=== PATIENT | female | born 1950 | race Caucasian/White ===

== ENCOUNTER 2020-03-18 12:58 | Observation (INO) | payer MEDICARE, SELFPAY ==
[2020-03-18] VITALS (25 sets, daily range): BP systolic 120–143; BP diastolic 66–100; PULSE 65–106; RESP 14–20; TEMP 36.1–36.7; O2SAT 95–99; BMI 38.9
--- NOTE | ~2020-03-18 | CT_ITS ---
EXAMINATION: CT brain wo con DATE: 03/18/2020 14:01 INDICATION: Fall. Struck back of head. Syncopal episodes. TECHNIQUE: Computed tomography (CT) of the head was performed without intravenous contrast. The mA wa s adjusted according to patient size. Iterative reconstruction technique was employed. Exam dose: 60 5.33 mGy-cm total exam DLP. COMPARISON: None FINDINGS: No intracranial mass lesion or hemorrhage, midline shift or mass effect. There are bilatera l carotid siphon internal carotid artery calcifications. No cerebrovascular accident is evident. No subdural or epidural hematoma. No orbital mass lesion is evident. There is right posterior parietal cephalohematoma and mild subcutaneous emphysema secondary to lacera tion. No fracture or bone destruction of the cranial vault. Included paranasal sinuses and mastoid air cells are normally developed and aerated. IMPRESSION: Right posterior parietal cephalohematoma and mild subcutaneous emphysema No skull fracture or acute intracranial finding Cerebral atherosclerosis Reviewed, dictated and finalized at [facility]. Reviewed, dictated and finalized at [facility]. IMPRESSION: Right posterior parietal cephalohematoma and mild subcutaneous emph ysema No skull fracture or acute intracranial finding Cerebral atherosclerosis
--- NOTE | ~2020-03-18 | XR_ITS ---
EXAMINATION: XR elbow RT min 3V EXAM DATE: 03/19/2020 17:25 INDICATION: Initial encounter following injury, with pain of the right elbow. Posterior tenderness. TECHNIQUE: Right elbow frontal, lateral with flexion, and oblique projections obtained and reviewed. There is no prior study for comparison. FINDINGS: Right elbow anterior humeral line intact. There are no acute fractures or dislocations identified. There is no subcutaneous gas. The soft tis rabia is unremarkable. There is an antecubital IV. IMPRESSION: No acute osseous findings. Reviewed, dictated and finalized at [facility]. IMPRESSION: No acute osseous findings.
--- NOTE | ~2020-03-18 | XR_ITS ---
EXAMINATION: XR chest 1V portable DATE: 03/18/2020 20:30 INDICATION: Increased BP. Possible superior vena cava syndrome. TECHNIQUE: frontal view of the chest was obtained. COMPARISON: None FINDINGS: Focal eventration along the left hemidiaphragm with a couple adjacent surgical clips. Mild linear ate lectasis/scarring in the left lower lung zone. No other airspace opacities, pulmonary edema, pleural effusion or pneumothorax. The cardiomediastinal silhouette is normal. Retained cardiac pacemaker/defi brillator lead with distal tip projecting over the apex of the right ventricle and with proximal and coiled without attached pacemaker projecting of the lateral left upper lung. Widening of the bilatera l coracoclavicular joints which could represent sequela of old trauma or prior distal clavicle resect ions. IMPRESSION: 1. Mild left basilar atelectasis. No acute cardiopulmonary disease. Reviewed, dictated and finalized at [facility].
--- NOTE | 2020-03-18 13:12 | ED.SYNCOPE ---
HPI - Syncope General Chief Complaint: Syncope Stated Complaint: SYNCOPE, FALL, HEAD LAC Time Seen by Provider: 03/18/20 13:03 History of Present Illness HPI narrative: 69 yo female with h/o htn, hypothyroid, depression, orthostatic syncope presents c/o syncope. She reports that she was just discharged from another hospital after being admitted for nearly one week for near syncope on standing. She says that every time she stands her head and neck swell and she becomes dizzy and her legs get weak. Today she stood up and passed out falling backward and striking her head on a door. She sustained a laceration to her scalp. She is on eliquis Related Data Home Medications Medication Instructions Recorded Confirmed apixaban [Eliquis] 5 mg PO BID 03/18/20 03/18/20 atorvastatin 10 mg PO DAILY 03/18/20 03/18/20 famotidine 20 mg PO BID 03/18/20 03/18/20 levothyroxine 175 mcg PO DAILY 03/18/20 03/18/20 lisinopril 5 mg PO DAILY 03/18/20 03/18/20 metoprolol tartrate 25 mg PO DAILY 03/18/20 03/18/20 nitrofurantoin macrocrystal 100 mg PO HS 03/18/20 03/18/20 omeprazole magnesium [Prilosec OTC] 20 mg PO DAILY 03/18/20 03/18/20 tramadol 50 mg PO TID 03/18/20 03/18/20 venlafaxine 75 mg PO TID 03/18/20 03/18/20 zolpidem 5 mg PO HS PRN 03/18/20 03/18/20 Allergies Allergy/AdvReac Type Severity Reaction Status Date / Time azithromycin Allergy Unknown Verified 03/18/20 14:17 Review of Systems Review of Systems: All systems reviewed & are unremarkable except as noted in HPI and below Constitutional: Constitutional: Denies fever(s) Eyes: Eyes: Denies change in vision Cardiovascular: Cardiovascular: Denies chest pain Gastrointestinal: Gastrointestinal: Denies abdominal pain and Denies nausea Musculoskeletal: Musculoskeletal: Denies back pain Neurologic: Denies confusion and Reports syncope [facility] Past Medical History Medical History Arrhythmia Ascending aortic aneurysm DVT (deep venous thrombosis) GERD (gastroesophageal reflux disease) HTN (hypertension) with goal to be determined Hyperlipidemia Hypothyroidism Pseudomyxoma peritonei Syncope and collapse Surgical History Surgical History History of cardiac defibrillator placement Family History Family History (Updated 03/18/20 @ 17:31 by Rochelle Lucas RN) Father Skin cancer Mother Diabetes mellitus Social History Social History Smoking status: Never smoker Alcohol intake: former Substance use: never Gender identity (if verbalized by the patient): Female Spiritual care concerns: No Exam Const: General: healthy appearing, no acute distress and alert Orientation/consciousness: patient oriented x3 HENMT: Head: laceration (scalp) Neck: Neck: normal visual inspection and no lymphadenopathy Chest: Chest palpation & inspection: no tenderness Resp: Effort & Inspection: normal respiratory effort Auscultation: clear to auscultation bilaterally, no rales, no rhonchi and no wheezes Cardio: Jugular venous distension: no JVD Rate: regular rate Rhythm: regular rhythm Heart sounds: no murmurs GI: Inspection: non-distended GI Palp: Yes Soft to palpation and No Tenderness to palpation present (GI) Skin: General skin exam: normal color Neuro: General: patient oriented x3 and moves all extremities Speech: normal speech Extrem: General: no edema Psych: Appearance: well kempt Affect: normal affect Course Course Emergency Course: I was planning laceration repair. Patient went upstairs before I had the opportunity to complete this Vital Signs Vital signs: Vital Signs Temperature 36.7 C 03/18/20 13:07 Pulse Rate 76 03/18/20 13:07 Respiratory Rate 20 03/18/20 13:07 Blood Pressure 138/89 03/18/20 13:07 Pulse Oximetry 95 03/18/20 13:07 Temperature 36.1 C L 06/0
--- NOTE | 2020-03-18 13:13 | ECG_ITS ---
Measurements Intervals [place] Rate: 79 P: 53 MI: 160 QRS: 31 QRSD: 101 T: 98 QT: 384 QTc: 441 Interpretive Statements SINUS RHYTHM WITH SINUS ARRHYTHMIA BORDERLINE ST-T WAVE ABNORMALITY- ANTEROLAT/LAT LEADS BORDERLINE ECG Electronically Signed On 03-18-2020 13:57:02 CDT by Naveed Singh D.O.
[2020-03-18] MEDS: SODIUM CHLORIDE 0.9% IV 500 ML 999 ML IV CONT (13:28)
[2020-03-18 13:47] LABS: Basophils Percent Auto 0.5 % (0.2-1.2); Eosinophils Absolute Auto 0.1 K/mm3 (0-0.3); Eosinophils Percent Auto 1.1 % (0-4.4); Hematocrit 43.1 % (37.0-47.0); Hemoglobin 13.9 g/dL (12.0-15.0); Immature Granulocyte Absolute 0.03 K/mm3 (0.00-0.031); Immature Granulocyte Percent A 0.4 % (0-0.5); Lymphocytes Absolute Auto 2.29 K/mm3 (0.9-3.2); Lymphocytes Percent Auto 27.6 % (18.3-44.2); Mean Corpuscular HGB Conc 32.3 g/dl (32-36); Mean Corpuscular Hemoglobin 32.6 pg (26-34); Mean Corpuscular Volume 101.2 fl (80-100); Mean Platelet Volume 10.3 fl (7.4-10.4); Monocytes Absolute Auto 0.8 K/mm3 (0.1-0.6); Monocytes Percent Auto 10.1 % (2.6-8.5); Neutrophils Percent Auto 60.3 % (45.5-73.1); Platelet Count Result 311 k/mm3 (150-375); Red Blood Count 4.26 M/mm3 (4.2-5.4); Red Cell Distribution Width 14.6 % (11.5-14.5); White Blood Count 8.3 K/mm3 (4.5-10.0)
[2020-03-18 13:56] LABS: INR 1.1; Prothrombin Time 14.3 Seconds (11.1-14.7)
[2020-03-18 13:57] LABS: Partial Thromboplastin Time 27.2 SECONDS (22.3-36.8)
[2020-03-18 13:58] LABS: Alanine Aminotransferase 39 U/L (4-35); Albumin Level 4.8 g/dL (3.5-5.1); Alkaline Phosphatase 121 U/L (38-126); Aspartate Amino Transferase 49 U/L (14-36); Bilirubin,Total 0.6 mg/dL (0.2-1.3); Blood Urea Nitrogen 11 mg/dL (7-17); Calcium 9.1 mg/dL (8.4-10.2); Carbon Dioxide 25 mmol/L (22-30); Chloride 104 mmol/L (98-107); Estimated CRCL calculation 63 ml/min; Estimated Glomerular Filt Rate > 60; Glucose 142 mg/dL (65-105); Potassium 3.8 mmol/L (3.4-5.0); Sodium 139 mmol/L (137-145)
[2020-03-18 14:47] LABS: Add Urine Microscopic? YES; Appearance Urine Clear (Clear); Bilirubin Urine Negative (Negative); Blood Urine 1+ (Negative); Color Urine Yellow (Yellow); Glucose Urine UA Negative (Negative); Ketones Urine Negative (Negative); Leukocyte Esterase Ur Negative LEU/UL (Negative); Mucus Urine Rare /lpf; Nitrate Urine Negative (Negative); Protein Urine Negative (Negative); RBC Urine 0-2 /hpf (0-2); Squamous Epithelial Cell Urine Occasional /hpf (Few); Urobilinogen Urine Negative mg/dL (<2.0); WBC Urine 0-3 /hpf
--- NOTE | 2020-03-18 17:08 | PC.NURSE ---
This patient, Jossy Celis, was admitted to Medical Room 342-01. Patient/family oriented to hospital policies and general routines including ID bracelet, bed and alarms, visiting hours, pain management, procedures, bathroom and other care routines, personal items, smoking policy, room service/diet, and visiting hours. Valuables list has been completed. Information on how to activate the Rapid Response Team has been discussed. Patient/Family are encouraged to report perceived risks to care and to ask questions if they do not understand what they are told or what they should do.
[2020-03-18] MEDS: LACTATED RINGERS 1,000 ML 100 ML IV CONT (18:24)
--- NOTE | 2020-03-18 20:29 | PM.IMHP ---
H&P: HPI History of Present Illness Chief complaint: SYNCOPE, HEAD INJURY Narrative: This is a 69 year old female with known history of GERD, hypothyroidism, HTN, pseudomyxoma peritonei s/p chemostherapy, and previous arrhythmia who presented to the hospital today after suffering a syncopal episode. The patient was just discharged from [facility] in [place] yesterday after she spent the last 5 days admitted for two syncopal events that she suffered. The patient reports that she has had increased neck and facial swelling, facial redness, and the sensation of head pressure that has been ongoing since May but has worsened since this past week. Her facial swelling, redness and head fullness seems to improve when the patient lays down but worsens with sitting or standing. This past Saturday her facial redness was so severe that she reports her face was purple in color before she blacked out. 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 Ultrasound did not demonstrate any jugular occlusion. Carotid doppler U/s demonstrated less than 50% occlusion b/l. The patient was discharged home yesterday. She is chronically anticoagulted on Eliquis seconadry to two previous DVT secondae. and today she stode up and felt neck and facial fullness. She also experienced head pressure as she took a few steps and then passed out. The patient suffered head trauma. She denied any neck pain. She was found to have sustained a 4 cm linear laceration to her parietal scalp in the ER tonight. She denied any chest pain or shortness of breath prior to passing out today. She also denies any shortness of breath, confusion, blurry vision, difficulty swallowing, abdominal pain, dysuria, hematuria, nausea, vomiting, diarrhea or other symptoms. Review of Systems Review of Systems: All systems reviewed & are unremarkable except as noted in HPI and below [facility] Past Medical History Medical History (Updated 03/18/20 @ 21:21 by Bradley Abraham MD) Arrhythmia Ascending aortic aneurysm DVT (deep venous thrombosis) GERD (gastroesophageal reflux disease) HTN (hypertension) with goal to be determined Hyperlipidemia Hypothyroidism Pseudomyxoma peritonei Syncope and collapse Surgical History Surgical History (Updated 03/18/20 @ 20:46 by Bradley Abraham MD) History of cardiac defibrillator placement Family History Family History (Updated 03/18/20 @ 17:31 by Rochelle Lucas RN) Father Skin cancer Mother Diabetes mellitus Social History Social History Smoking status: Never smoker Alcohol intake: former Substance use: never Gender identity (if verbalized by the patient): Female Spiritual care concerns: No Meds Home Medications and Allergies Home Medications Medication Instructions Recorded Confirmed Type apixaban [Eliquis] 5 mg PO BID 03/18/20 03/18/20 History atorvastatin 10 mg PO DAILY 03/18/20 03/18/20 History famotidine 20 mg PO BID 03/18/20 03/18/20 History levothyroxine 175 mcg PO DAILY 03/18/20 03/18/20 History lisinopril 5 mg PO DAILY 03/18/20 03/18/20 History metoprolol tartrate 25 mg PO DAILY 03/18/20 03/18/20 History nitrofurantoin macrocrystal 100 mg PO HS 03/18/20 03/18/20 History omeprazole magnesium [Prilosec OTC] 20 mg PO DAILY 03/18/20 03/18/20 History tramadol 50 mg PO TID 03/18/20 03/18/20 History venlafaxine 75 mg PO TID 03/18/20 03/18/20 History zolpidem 5 mg PO HS PRN 03/18/20 03/18/20 History Allergies Allergy/AdvReac Type Severity Reaction Status Date / Time azithromycin Allergy Unknown Verified 03/18/20 14:17 Vital Signs Vital Signs - 24 hr 03/18/20 13:07 03/18/20 13:43 03/18/20 14:29 Temperature 36.7 C Pulse Rate 76 78 73 Respiratory Rate 20 Blood Pressure 138/89 140/91 H Pulse Oximetry 95 03/18/20 14:31 03/18/20 14
[2020-03-18] MEDS: VENLAFAXINE HCL 75 MG TABLET PO (21:39)
[2020-03-18] MEDS: FAMOTIDINE 20 MG TABLET PO (21:39)
--- NOTE | 2020-03-18 21:41 | PC.NURSE ---
MAINTENANCE NOTIFIED OF HOME CPAP MACHINE.
[2020-03-18] MEDS: TRAMADOL HCL 50 MG TABLET PO (23:43)
[2020-03-19] VITALS (8 sets, daily range): BP systolic 117–152; BP diastolic 64–88; PULSE 54–83; RESP 16–20; TEMP 36.1–36.3; O2SAT 100
[2020-03-19] MEDS: ACETAMINOPHEN 325 MG TABLET 650 MG PO ×2 (03:43→11:58)
[2020-03-19] MEDS: LACTATED RINGERS 1,000 ML 100 ML IV CONT (03:45)
[2020-03-19 06:03] LABS: Basophils Percent Auto 0.5 % (0.2-1.2); Eosinophils Absolute Auto 0.2 K/mm3 (0-0.3); Eosinophils Percent Auto 1.9 % (0-4.4); Hematocrit 39.8 % (37.0-47.0); Hemoglobin 12.7 g/dL (12.0-15.0); Immature Granulocyte Absolute 0.02 K/mm3 (0.00-0.031); Immature Granulocyte Percent A 0.2 % (0-0.5); Mean Corpuscular HGB Conc 31.9 g/dl (32-36); Mean Corpuscular Volume 100.3 fl (80-100); Mean Platelet Volume 10.3 fl (7.4-10.4); Monocytes Absolute Auto 1.2 K/mm3 (0.1-0.6); Monocytes Percent Auto 13.7 % (2.6-8.5); Neutrophils Absolute Auto 3.7 K/mm3 (1.3-6.7); Neutrophils Percent Auto 43.7 % (45.5-73.1); Platelet Count Result 294 k/mm3 (150-375); Red Blood Count 3.97 M/mm3 (4.2-5.4); Red Cell Distribution Width 14.3 % (11.5-14.5); White Blood Count 8.5 K/mm3 (4.5-10.0)
[2020-03-19] MEDS: VENLAFAXINE HCL 75 MG TABLET PO ×2 (06:10→14:11)
[2020-03-19] MEDS: LEVOTHYROXINE SODIUM 75 MCG TABLET PO (06:10)
[2020-03-19] MEDS: LEVOTHYROXINE SODIUM 100 MCG TABLET PO (06:10)
[2020-03-19 06:19] LABS: Blood Urea Nitrogen 10 mg/dL (7-17); Calcium 8.8 mg/dL (8.4-10.2); Carbon Dioxide 24 mmol/L (22-30); Chloride 107 mmol/L (98-107); Estimated CRCL calculation 76 ml/min; Estimated Glomerular Filt Rate > 60; Glucose 96 mg/dL (65-105); Magnesium 2.1 mg/dL (1.6-2.3); Potassium 3.7 mmol/L (3.4-5.0); Sodium 138 mmol/L (137-145)
[2020-03-19 07:26] LABS: Free T4 Free Thyroxine Reflex 0.98 ng/dL (0.78-2.19)
[2020-03-19 08:23] LABS: Total Triiodothyronine (T3) 1.28 NG/ML (0.97-1.69)
[2020-03-19] MEDS: ATORVASTATIN 10 MG TABLET PO (09:05)
[2020-03-19] MEDS: lisinopriL 5 MG TABLET PO (09:05)
[2020-03-19] MEDS: TRAMADOL HCL 50 MG TABLET PO ×2 (09:05→14:11)
[2020-03-19] MEDS: PANTOPRAZOLE 40 MG TABLET PO (09:05)
[2020-03-19] MEDS: FAMOTIDINE 20 MG TABLET PO (09:05)
--- NOTE | 2020-03-19 16:51 | PM.IMPN ---
Progress Note: A&P Assessment and Plan (1) Syncope and collapse: Code(s): R55 - Syncope and collapse Status: Acute Assessment and Plan: The patients symptoms and signs are most consistent with a thoracic central venous obstruction.or SVC syndrome. 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 Fall precautions. Continue telemetry. Recent Echocardiogram, carotid dopplers obtained and on chart. With no significant abnormalities Discussed the case with thoracic surgery at [place] and they will accept patient in transfer. No need to try further diagnostic imaging here which may have to be repeated there (2) Traumatic cephalohematoma: Qualifiers: Encounter type: initial encounter Qualified Code(s): S00.93XA - Contusion of unspecified part of head, initial encounter Code(s): S00.93XA - Contusion of unspecified part of head, initial encounter Status: Acute Assessment and Plan: Stable. No signs of further bleeding. (3) Chronic anticoagulation: Code(s): Z79.01 - truck terminal manager (current) use of anticoagulants Status: Chronic Assessment and Plan: Hold anticoagulation secondary to fall risk and recent head trauma w/ cephalohematoma. DVT was upper extremity several years ago (4) Ascending aortic aneurysm: Code(s): I71.2 - Thoracic aortic aneurysm, without rupture Status: Chronic Assessment and Plan: Incidenally found on recent CT scan. The patient will need to follow up with Vascular Surgery. And will continue beta-guerrero and statin (5) Hypothyroidism: Qualifiers: Hypothyroidism type: unspecified Qualified Code(s): E03.9 - Hypothyroidism, unspecified Code(s): E03.9 - Hypothyroidism, unspecified Status: Chronic Assessment and Plan: Continue Levothyroxine. TSH slightly elevated and will probably need increase in her levothyroxine (6) HTN (hypertension) with goal to be determined: Code(s): I10 - Essential (primary) hypertension Status: Chronic Assessment and Plan: Stable. Monitor blood pressure. Resume home lisinopril and continue metoprolol.. Patient had been on tartrate once a day and will change to metoprolol succinate daily (7) Hyperlipidemia: Qualifiers: Hyperlipidemia type: unspecified Qualified Code(s): E78.5 - Hyperlipidemia, unspecified Code(s): E78.5 - Hyperlipidemia, unspecified Status: Chronic Assessment and Plan: Continue statin therapy. (8) GERD (gastroesophageal reflux disease): Qualifiers: Esophagitis presence: esophagitis presence not specified Qualified Code(s): K21.9 - Gastro-esophageal reflux disease without esophagitis Code(s): K21.9 - Gastro-esophageal reflux disease without esophagitis Status: Chronic Assessment and Plan: Continue famotidine PO. Subjective Date/time seen: 03/19/20 16:52 Interval history: 69-year-old hypertensive white female admitted after syncopal episode. She relates to have progressive swelling of her face and pressure in her head when sitting or standing. Evaluated for syncope and outlying hospital with no etiology being found. History of pseudomyxoma peritonea with surgery and intra-abdominal warm chemo some [address] [facility]. In recumbent semi erect position she feels fine with no complaints Exam Narrative: Exam Narrative: Blood pressure 150/86 pulse is 74 saturating 100% on room air afebrile Pupils equal reactive to light sclera anicteric Mouth normal Neck is supple prominent jugular venous distension with prominent veins on forehead and on anterior chest Lungs clear CV regular rate rhythm Abdomen is soft nontender no masses obese Extremities without stanislav
[2020-03-19] MEDS: METOPROLOL SUCCINATE EXT REL 25 MG TABCR PO (17:28)
--- NOTE | 2020-03-19 17:29 | PC.NURSE ---
Pt prefers to take tramodol at a later time in the evening to get her through the night.
--- NOTE | 2020-03-19 17:46 | PC.NURSE ---
Report given to malachi arias at [facility] so pt can be transfered to received care from a vascular surgeon, ambulance being called to transport pt.
--- NOTE | 2020-03-20 16:52 | PM.TDS ---
Transfer Discharge Sum: Prov Provider Date of admission: 03/18/20 16:28 Primary care physician: LODGE OFFICER PHYSICIAN Admitting clinician: Solange Prince MD DS: Admitting Diagnosis Admitting Diagnosis Admitting Diagnosis: Syncope and collapse DS: Discharge Diagnosis Discharge Diagnosis (1) Syncope and collapse: Code(s): R55 - Syncope and collapse Status: Acute Assessment and Plan: The patients symptoms and signs are most consistent with a thoracic central venous obstruction.or SVC syndrome. 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 . Recent Echocardiogram, carotid dopplers obtained and on chart. With no significant abnormalities Discussed the case with thoracic surgery at [place] and they will accept patient in transfer. No need to try further diagnostic imaging here which may have to be repeated there (2) Traumatic cephalohematoma: Qualifiers: Encounter type: initial encounter Qualified Code(s): S00.93XA - Contusion of unspecified part of head, initial encounter Code(s): S00.93XA - Contusion of unspecified part of head, initial encounter Status: Acute Assessment and Plan: Stable. No signs of further bleeding. 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 DVT was upper extremity several years ago (4) Ascending aortic aneurysm: Code(s): I71.2 - Thoracic aortic aneurysm, without rupture Status: Chronic Assessment and Plan: Incidenally found on recent CT scan. The patient will need to follow up with Vascular Surgery. And will continue beta-guerrero and statin (5) Hypothyroidism: Qualifiers: Hypothyroidism type: unspecified Qualified Code(s): E03.9 - Hypothyroidism, unspecified Code(s): E03.9 - Hypothyroidism, unspecified Status: Chronic Assessment and Plan: Continue Levothyroxine. TSH slightly elevated and will probably need increase in her levothyroxine (6) HTN (hypertension) with goal to be determined: Code(s): I10 - Essential (primary) hypertension Status: Chronic Assessment and Plan: Stable. Monitor blood pressure. Resume home lisinopril and continue metoprolol.. Patient had been on tartrate once a day and will change to metoprolol succinate daily (7) Hyperlipidemia: Qualifiers: Hyperlipidemia type: unspecified Qualified Code(s): E78.5 - Hyperlipidemia, unspecified Code(s): E78.5 - Hyperlipidemia, unspecified Status: Chronic Assessment and Plan: Continue statin therapy. (8) GERD (gastroesophageal reflux disease): Qualifiers: Esophagitis presence: esophagitis presence not specified Qualified Code(s): K21.9 - Gastro-esophageal reflux disease without esophagitis Code(s): K21.9 - Gastro-esophageal reflux disease without esophagitis Status: Chronic Assessment and Plan: Continue famotidine PO. Transfer Discharge Sum: Med Medications Active and Home Medications: Home Medications apixaban [Eliquis] 5 mg PO BID 03/18/20 [History Confirmed 03/18/20] atorvastatin 10 mg PO DAILY 03/18/20 [History Confirmed 03/18/20] famotidine 20 mg PO BID 03/18/20 [History Confirmed 03/18/20] levothyroxine 175 mcg PO DAILY 03/18/20 [History Confirmed 03/18/20] lisinopril 5 mg PO DAILY 03/18/20 [History Confirmed 03/18/20] metoprolol tartrate 25 mg PO DAILY 03/18/20 [History Confirmed 03/18/20] nitrofurantoin macrocrystal 100 mg PO HS 03/18/20 [History Confirmed 03/18/20] omeprazole magnesium [Prilosec OTC] 20 mg PO DAILY 03/18/20 [History Confirmed
== END 2020-03-19 19:09 | disposition short-term general hospital (02) ==
LOC: ANHED 15:33 → ANH3MED 19:20
PROVIDERS: Family Medicine; Admitting Provider Family Medicine; Emergency Provider Emergency Medicine; Visit Provider Internal Medicine
DX: R55 Syncope and collapse (principal); S00.93XA Contusion of unspecified part of head, initial encounter; W18.39XA Other fall on same level, initial encounter; I71.2 Thoracic aortic aneurysm, without rupture; K21.9 Gastro-esophageal reflux disease without esophagitis; I10 Essential (primary) hypertension; E03.9 Hypothyroidism, unspecified; E78.5 Hyperlipidemia, unspecified; Z79.01 Long term (current) use of anticoagulants; Z79.899 Other long term (current) drug therapy; Z85.89 Personal history of malignant neoplasm of other organs and systems; Z86.718 Personal history of other venous thrombosis and embolism; Z92.21 Personal history of antineoplastic chemotherapy
CPT/HCPCS: 36415; 70450; 71045; 73080; 80048; 80053; 81001; 83735; 84439; 84443; 84480; 85025; 85610; 85730; 93005; 96360; 96361; 99285; A9270; G0378; J7040; J7120

== ENCOUNTER 2025-08-28 19:53 | Emergency (ER) | payer MEDICARE, SELFPAY ==
--- NOTE | 2025-08-28 19:54 | ED.SKABFB ---
HPI - Skin/Abscess/Foreign Bdy General Chief complaint: Extremity Problem,Nontraumatic Stated complaint: RT Foot Pain Time Seen by Provider: 08/28/25 19:54 Source: patient Mode of arrival: ambulatory Limitations: no limitations History of Present Illness HPI narrative: Jossy is a 75 year old female patient presenting to the clinic today with complaints of a possible right foot infection. She reports she was stung by a wasp on August 19. States she has had some itching and swelling to the right foot however over the last 20 minutes has gotten painful, red, and more swollen. Is concerned that it may be infected. Denies any known fevers, chills, body aches. She is diabetic. Related Data Home Medications ?Medication ?Instructions ?Recorded ?Confirmed ?Last Taken ?Type apixaban 5 mg tablet (Eliquis) 5 mg PO BID 03/18/20 03/18/20 03/18/20 History atorvastatin 10 mg tablet 10 mg PO DAILY 03/18/20 03/18/20 Unknown History famotidine 20 mg tablet 20 mg PO BID 03/18/20 03/18/20 03/18/20 History levothyroxine 175 mcg tablet 175 mcg PO DAILY 03/18/20 03/18/20 03/18/20 History lisinopril 5 mg tablet 5 mg PO DAILY 03/18/20 03/18/20 Unknown History metoprolol tartrate 25 mg tablet 25 mg PO DAILY 03/18/20 03/18/20 03/18/20 History nitrofurantoin macrocrystal 100 mg 100 mg PO HS 03/18/20 03/18/20 Unknown History capsule omeprazole magnesium 20 mg 20 mg PO DAILY 03/18/20 03/18/20 Unknown History tablet,delayed release (Prilosec OTC) tramadol 50 mg tablet 50 mg PO TID 03/18/20 03/18/20 Unknown History venlafaxine 75 mg tablet 75 mg PO TID 03/18/20 03/18/20 Unknown History zolpidem 5 mg tablet 5 mg PO HS PRN Insomnia 03/18/20 03/18/20 Unknown History Allergies Allergy/AdvReac Type Severity Reaction Status Date / Time azithromycin Allergy Mild Hives Verified 08/28/25 19:54 Review of Systems Review of Systems: Pertinent positives per HPI. Patient denies any fever, chills, rash, headache, visual changes, dizziness, cough, runny nose, sore throat, shortness of breath, chest pain, palpitations, nausea, vomiting, diarrhea, constipation, abdominal pain, or any urinary issues. [facility] Past Medical History Medical History (Updated 08/28/25 @ 20:03 by Jose Enrique Melvin APRN) DVT (deep venous thrombosis) Syncope and collapse Ascending aortic aneurysm Arrhythmia Pseudomyxoma peritonei GERD (gastroesophageal reflux disease) Hyperlipidemia HTN (hypertension) with goal to be determined Hypothyroidism Surgical History Surgical History History of cardiac defibrillator placement Family History Family History Father Skin cancer Mother Diabetes mellitus Social History Social History Smoking status: Never smoker Alcohol intake: former Substance use: never Gender identity (if verbalized by the patient): Female Spiritual care concerns: No Comments At the time of my signature, I reviewed and agree with the nursing past medical, surgical, social, and family history. There is no relevant family history pertinent to the patient complaint. Exam Narrative: General: Well-developed, morbidly obese, in no apparent distress Head: Normocephalic, atraumatic. Cardio: Regular rate and rhythm, s1 and s2 normal, no murmur appreciated. Resp: Clear to auscultation bilaterally, no rhonchi, rales, wheezing or rubs. Integumentary: [place], warm, and dry, redness, swelling, and erythema to the right dorsal foot, no induration or drainage, tender to palpation Course Course Emergency Course: Portions of this record may have been created with voice recognition software. Level of Care: Express Care Visit Vital Signs Vital signs: Vital Signs Temperature 36.6 C 08/28/25 19:59 Pulse Rate 66 08/28/25 19:59 Respiratory Rate 20 08/28/25 19:59 Blood Pressure 148/75 H 08/28/25 19:59 Pulse Oximetry 100 08/28/25 19:59 Oxygen Delivery Room Air 08/28/25 19:59 Temperature 36.6 C 08/28/25 19:59 Pulse Rate 66 08/28/25 19:59 Respiratory Rate 20 08/28/25 19:59 Blood Pressure 148/75 H 08/28/25 19:59 Pulse Oximetry 100 08/28/25 19:59 Oxygen Delivery Room Air 08/28/25 19:59 Vital signs reviewed MDM - Skin/Abscess/Foreign Bdy MDM Narrative Medical decision making narrative: At the time of visit patient is resting comfortably on the exam table. Patient appears to be nontoxic. Complaints of a possible right foot infection. She reports she was stung by a wasp on August 19. States she has had some itching and swelling to the right foot however over the last 20 minutes has gotten painful, red, and more swollen. Is concerned that it may be infected. Denies any known fevers, chills, body aches. She is diabetic. On exam patient has redness, swelling, and erythema to the dorsal right foot, no induration or drainage. Plan: I suspect patient has possible early cellulitis to the right dorsal foot. Prescription for doxycycline was sent to the pharmacy. Supportive measures were discussed with the patient and they voiced understanding discharge instructions and agrees to treatment plan. Return precautions reviewed Differential Diagnosis Differential diagnosis: Likely abscess of skin or subcutaneous tissue, cellulitis and other (wound infection) Discharge Plan Discharge Clinical Impression: Infected insect bite or sting Patient Disposition: Home Condition: Stable Instructions: Antibiotic Form, Insect Bite or Sting (ED) Additional Instructions: Take doxycycline as prescribed Increase fluids and stay well hydrated May take Tylenol/Motrin as needed for pain Keep foot elevated May take Benadryl 25 mg every 6 hours as needed for swelling/itching May apply ice pack to the area to help alleviate swelling and pain. Follow-up with your primary care doctor in 2-3 days for wound check Patient Language: Mongolian Prescriptions: New doxycycline monohydrate 100 mg capsule 100 mg PO BID 7 Days Qty: 14 0RF No Action levothyroxine 175 mcg Tablet 175 mcg PO DAILY venlafaxine 75 mg Tablet 75 mg PO TID atorvastatin 10 mg Tablet 10 mg PO DAILY tramadol 50 mg Tablet 50 mg PO TID famotidine 20 mg Tablet 20 mg PO BID nitrofurantoin macrocrystal 100 mg Capsule 100 mg PO HS lisinopril 5 mg Tablet 5 mg PO DAILY zolpidem 5 mg Tablet 5 mg PO HS PRN (Reason: Insomnia) omeprazole magnesium [Prilosec OTC] 20 mg Tablet,Delayed Release (Dr/Ec) 20 mg PO DAILY metoprolol tartrate 25 mg Tablet 25 mg PO DAILY Eliquis 5 mg Tablet 5 mg PO BID Follow-up/Referrals: PHYSICIAN,[facility] [Primary Care Provider, Internal Medicine] Time of Disposition: 20:03 Quality NIHSS Nursing Documentation ED NIHSS nursing documentation: reviewed/agree
[2025-08-28 19:59] VITALS: BP 148/75; PULSE 66; RESP 20; TEMP 36.6; O2SAT 100
== END 2025-08-28 20:10 | disposition home or self-care (01) ==
PROVIDERS: Emergency Provider Nurse Practitioner Family
DX: S90.861A Insect bite (nonvenomous), right foot, initial encounter (principal); L08.9 Local infection of the skin and subcutaneous tissue, unspecified; E78.5 Hyperlipidemia, unspecified; E03.9 Hypothyroidism, unspecified; I10 Essential (primary) hypertension; Z86.718 Personal history of other venous thrombosis and embolism; W57.XXXA Bitten or stung by nonvenomous insect and other nonvenomous arthropods, initial encounter
CPT/HCPCS: 99213; G0463